=== PATIENT | male | born 1990 | race Caucasian/White ===

== ENCOUNTER 2019-04-13 00:18 | Emergency (ER) | payer OTHER ==
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
[2019-04-13 01:58] VITALS: BP 107/56
--- NOTE | 2019-04-13 02:23 | CT Report ---
Reason: right eye injury, tenderness, swelling Procedure Date: 04/13/2019 Accession Number: [id number] / [id number] Procedure: CT - MAXILLOFACIAL WO CPT Code: FULL RESULT: EXAM: CT MAXILLOFACIAL WITHOUT CONTRAST EXAM DATE: 04/13/2019 01:19 AM. CLINICAL HISTORY: Right eye injury, tenderness, swelling. COMPARISONS: None. TECHNIQUE: Thin-section axial images were acquired of the face without contrast. Post-processing: Coronal and sagittal reformats. Other: None. In accordance with CT protocol optimization, one or more of the following dose reduction techniques were utilized for this exam: automated exposure control, adjustment of mA and/or KV based on patient size, or use of iterative reconstructive technique. FINDINGS: Soft Tissue: Mild right periorbital soft tissue swelling. Orbits: Symmetric and unremarkable. Bones: No fracture or bone lesion. Temporomandibular Joints: The temporomandibular joints are symmetric and normally located. Sinuses: Mucosal disease in bilateral maxillary, ethmoid, and frontal sinuses. Other: None. IMPRESSION: 1. No acute fracture or dislocation seen. 2. Mild right periorbital soft tissue swelling. 3. Mucosal disease in the sinuses. [facility]
== END 2019-04-13 02:30 | disposition home or self-care (01) ==
LOC: ED 00:18
DX: F10.129 Alcohol abuse with intoxication, unspecified (principal); S00.11XA Contusion of right eyelid and periocular area, initial encounter; S60.221A Contusion of right hand, initial encounter; S50.312A Abrasion of left elbow, initial encounter; F17.200 Nicotine dependence, unspecified, uncomplicated; Y35.91XA Legal intervention, means unspecified, law enforcement official injured, initial encounter
CPT/HCPCS: 70486; 99284